=== PATIENT | female | born 1965 | race Caucasian/White ===

== ENCOUNTER 2018-12-14 06:45 | Day surgery (SDC) | payer OTHER ==
--- NOTE | 2018-12-09 20:00 | EKG REPORT ---
SEVERITY:- NORMAL ECG - SINUS RHYTHM : Confirmed by: Jaz Blair MD 09-Dec-2018 20:00:17
[2018-12-14] MEDS ORDERED: PROPOFOL INJ 200 MG/20 ML VIAL IV ONE ×2 (08:55→10:05)
[2018-12-14] MEDS ORDERED: LIDOCAINE 2% INJ (20 MG/ML) 20 ML MDV ONE (08:55)
[2018-12-14] MEDS ORDERED: PROMETHAZINE HCL INJ 25 MG/1 ML VIAL IV PRN ×2 (08:59)
[2018-12-14] MEDS ORDERED: DIPHENHYDRAMINE HCL 50 MG/ML VIAL IV PRN (08:59)
[2018-12-14] MEDS ORDERED: MEPERIDINE HCL/PF INJ 25 MG/1 ML DISP.SYRIN IV PRN (08:59)
[2018-12-14] MEDS ORDERED: OXYCODONE-ACETAMINOPHEN 5-325 MG TABLET PO PRN ×2 (08:59)
[2018-12-14] MEDS ORDERED: FENTANYL CITRATE INJ/PF 100 MCG/2 ML AMPUL IV PRN ×3 (08:59)
--- NOTE | 2018-12-14 11:08 | Discharge Summary ---
Discharge Summary (SDC) - Discharge Final Diagnosis: Colon polyp Date of Surgery: 12/14/18 Discharge Date: 12/14/18 Condition: Stable Forms: ASU Anesthesia D/C Instruction, Discharge POC-Surgical Service Treatment or Instructions: NO DRIVING TODAY DIET TOLERATED Discharge home. Activity: nonstrenuous. Follow-up with me in 2 weeks. Referrals: MANDI HOLDEN MD [ACTIVE STAFF] - 01/03/19 8:15 am Discharge Diet: As Tolerated Respiratory Treatments at Home: Deep Breathing/Coughing, Incentive Spirometer Discharge Activity: Balance Activity w/Rest, No Driving Home Care Assistance: None Needed Report the Following to Your Physician Immediately: Shortness of Breath, Nausea, Vomiting, Increase in Pain, Fever over 101 Degrees, Unusual Bleeding, Redness, Swelling, Warmth, Increased Soreness, Drainage-Yellow, Drainage-Jeronimo, Drainage-Green, Drainage-Foul Smelling, Large Clots, Numbness, Tingling Sensation, Wheezing, Seizure, IV Site Infection Signs
--- NOTE | 2018-12-14 11:13 | Operative Report ---
Nonrecallable Operative Report DATE OF SURGERY: 12/14/18 PREOPERATIVE DIAGNOSIS: Screening for malignancy POSTOPERATIVE DIAGNOSIS: 1. Colon polyp at 70 cm. 2. Diverticulosis, throughout the colon OPERATION: 1. Colonoscopy to the cecum. 2. Cold biopsy of polyp at 70 cm, at the mouth of a diverticula. SURGEON: MANDI HOLDEN ANESTHESIA: LMAC TISSUE REMOVED OR ALTERED: Colon polyp at 70 cm COMPLICATIONS: None apparent ESTIMATED BLOOD LOSS: Minimal PROCEDURE: Procedure in detail: After informed consent was obtained, the patient was brought into the operating room and laid in the left lateral decubitus position. The endoscope was inserted up the rectum, sigmoid colon, descending colon, across the transverse colon, down the ascending colon, and into the cecum. The ileocecal valve and appendiceal orifice were identified. The colon was found to be quite tortuous. There were diverticulosis scattered throughout the entirety of the colon. There was no sign of active diverticulitis. The scope was withdrawn, circumferentially noting the mucosa. The prep was good. The scope was withdrawn past the ascending colon, transverse colon, and into the descending colon. At 70 cm, there was a small polyp identified at the mouth of a diverticula. The polyp was removed in its entirety using cold biopsy forceps. The scope was then withdrawn into the sigmoid colon, and into the rectum. A retroflexion maneuver was performed noting no significant internal hemorrhoids. The scope was straightened, air was suctioned from the rectum, the scope was removed, and the procedure was concluded. Condition: Stable.
[2018-12-14 12:45] VITALS: BP 128/85
== END 2018-12-14 10:50 | disposition home or self-care (01) ==
LOC: OROUT 06:45
PROVIDERS: ATTEND Surgery
DX: Z12.11 Encounter for screening for malignant neoplasm of colon (principal); D12.6 Benign neoplasm of colon, unspecified; K57.30 Diverticulosis of large intestine without perforation or abscess without bleeding; I10 Essential (primary) hypertension; G43.909 Migraine, unspecified, not intractable, without status migrainosus; Z79.899 Other long term (current) drug therapy
CPT/HCPCS: 45380; 93005; 81025; 88305 ×2; 93010; J3490; J2704; 811